=== PATIENT | male | born 1950 | race Caucasian/White ===

== ENCOUNTER 2024-08-28 19:56 | Emergency (ER) | payer MEDICARE, BC ==
[~2024-08-28] VITALS: Ht 188 cm; Wt 102.1 kg
[2024-08-28 20:04] VITALS: TEMP 98
[2024-08-28] MEDS ORDERED: LORAZEPAM 0.5 MG TABLET ONE (20:36)
[2024-08-28] MEDS: LORAZEPAM 1 MG TABLET PO ONE (20:38)
[2024-08-28 20:43] VITALS: O2SAT 99
[2024-08-28] MEDS ORDERED: hydrALAZINE HCL 50 MG TABLET ONE (21:17)
[2024-08-28] MEDS: hydrALAZINE HCL 25 MG TABLET PO ONE (21:21)
[2024-08-28 21:35] VITALS: BP 158/65
== END 2024-08-28 21:57 | disposition home or self-care (01) ==
LOC: ER 20:01
DX: R00.2 Palpitations (principal); T39.8X5A Adverse effect of other nonopioid analgesics and antipyretics, not elsewhere classified, initial encounter; I10 Essential (primary) hypertension; E11.9 Type 2 diabetes mellitus without complications; Y92.89 Other specified places as the place of occurrence of the external cause